=== PATIENT | male | born 1970 | race Caucasian/White ===

== ENCOUNTER 2020-02-12 06:14 | Day surgery (SDC) | payer MEDICAID, OTHER ==
[~2020-02-12] VITALS: Ht 157.5 cm; Wt 88.0 kg
[~2020-02-12 06:14] MED LIST: ACYC-114 PO; AMOX-291 PO; HYDR-3237 PO; LENA5CAP PO; LISI40TA PO
[2020-02-12 07:36] VITALS: BP 124/80
[2020-02-12 07:38] LABS: BASOPHILS # (AUTO) 0.02 x10^3/uL (0-0.1); BASOPHILS % (AUTO) 0 % (0-1); EOSINOPHILS # (AUTO) 0.07 x10^3/uL (0-0.4); EOSINOPHILS % (AUTO) 1 % (1-7); LYMPHOCYTES # (AUTO) 2.34 x10^3/uL (1-3.4); LYMPHOCYTES % (AUTO) 30 % (22-44); MD NO; MEAN CORPUSCULAR HEMOGLOBIN 31.1 pg (27.5-34.5); MEAN CORPUSCULAR HGB CONC 33.1 g/dL (33.2-36.2); MEAN CORPUSCULAR VOLUME 93.9 fL (81-97); MEAN PLATELET VOLUME 8.2 fL (7.4-10.4); MONOCYTES # (AUTO) 0.65 x10^3/uL (0.2-0.8); MONOCYTES % (AUTO) 8 % (2-9); NEUTROPHILS # (AUTO) 4.77 x10^3/uL (1.8-6.8); NEUTROPHILS % (AUTO) 61 % (42-75); PLATELET COUNT 288 x10^3/uL (130-400); RED BLOOD COUNT 4.92 x10^6/uL (4.38-5.82); RED CELL DISTRIBUTION WIDTH 14.1 % (9.4-14.8)
[2020-02-12] MEDS ORDERED: SODIUM CHLORIDE 0.9% 1,000 ML IV SCH (07:39)
[2020-02-12] MEDS ORDERED: NALOXONE 1 MG/ML, 2ML ONE (07:47)
[2020-02-12] MEDS ORDERED: FLUMAZENIL 0.1 MG/1 ML, 5ML ONE (07:47)
[2020-02-12] MEDS ORDERED: FENTANYL PF 100 MCG/2ML ONE (07:47)
[2020-02-12] MEDS ORDERED: MIDAZOLAM 1 MG/ML, 5ML ONE (07:47)
== END 2020-02-12 10:05 | disposition home or self-care (01) ==
LOC: OUT 06:14
PROVIDERS: ATTEND Internal Medicine Hematology & Oncology
DX: C90.01 Multiple myeloma in remission (principal); E11.22 Type 2 diabetes mellitus with diabetic chronic kidney disease; I12.9 Hypertensive chronic kidney disease with stage 1 through stage 4 chronic kidney disease, or unspecified chronic kidney disease; N18.9 Chronic kidney disease, unspecified; K21.9 Gastro-esophageal reflux disease without esophagitis; E66.9 Obesity, unspecified; Z68.38 Body mass index [BMI] 38.0-38.9, adult; Z88.8 Allergy status to other drugs, medicaments and biological substances; Z94.84 Stem cells transplant status; Z80.42 Family history of malignant neoplasm of prostate
CPT/HCPCS: 36415; 38222; 77012; 85025; 85060; 85097; 88237; 88264; 88280; 88305; 88311; 88313; 88360; 99156; 99157; J2250; J3010; J7030; J2310

== ENCOUNTER 2020-08-17 09:06 | Inpatient (IN) | payer OTHER, MEDICAID ==
[~2020-08-17] VITALS: Ht 172.7 cm; Wt 62.0 kg
[2020-08-17] MEDS ORDERED: SODIUM CHLORIDE 0.9% 1,000ML IVBOLUS ONE ×2 (09:30→10:30)
[2020-08-17] MEDS ORDERED: ONDANSETRON 2MG/ML, 2ML IVPush ONE (09:30)
[2020-08-17] MEDS ORDERED: SODIUM CHLORIDE FLUSH 10ML SYR IVF ONE (09:30)
[2020-08-17] MEDS ORDERED: SODIUM CHLORIDE 0.9% 1,000 ML IV ONE (09:30)
[2020-08-17 09:45] LABS: BASOPHILS % (AUTO) 0 % (0-1); EOSINOPHILS % (AUTO) 0 % (1-7); LYMPHOCYTES % (AUTO) 4 % (22-44); MEAN CORPUSCULAR HEMOGLOBIN 29.3 pg (27.5-34.5); MEAN CORPUSCULAR HGB CONC 32.4 g/dL (33.2-36.2); MEAN PLATELET VOLUME 8.5 fL (7.4-10.4); MONOCYTES % (AUTO) 5 % (2-9); NEUTROPHILS % (AUTO) 91 % (42-75); PLATELET COUNT 511 x10^3/uL (130-400); RED BLOOD COUNT 4.32 x10^6/uL (4.38-5.82); RED CELL DISTRIBUTION WIDTH 15.6 % (9.4-14.8)
[2020-08-17 09:56] LABS: ALBUMIN 2.3 g/dL (3.4-5.0); ANION GAP 17 mmol/L (5-15); CALCIUM 8.8 mg/dL (8.5-10.1); CHLORIDE 89 mmol/L (98-107); CREATININE 1.66 mg/dL (0.7-1.3)
[2020-08-17 09:58] LABS: ALKALINE PHOSPHATASE 67 U/L (45-117); BILIRUBIN,TOTAL 0.7 mg/dL (0.2-1.0); TOTAL PROTEIN 8.7 g/dL (6.4-8.2)
[2020-08-17 10:00] LABS: ALANINE AMINOTRANSFERASE < 6 U/L (12-78)
[2020-08-17] MEDS ORDERED: PLEASE ENTER HEIGHT AND WEIGHT MC SCH (10:00)
[2020-08-17 10:22] LABS: ACETONE, SERUM Large (80mg/dL) (Negative)
[2020-08-17 10:30] LABS: MD SCAN
--- NOTE | 2020-08-17 10:49 | NUR ---
MULTI ATTEMPTS AT IV MADE UNSUCCESSFUL ERP AWARE PICC LINE ORDERED
[2020-08-17] MEDS ORDERED: GUAIFENESIN/DM 200-20MG, 10ML UDC PO PRN (11:00)
[2020-08-17] MEDS ORDERED: INSULIN REGULAR 100 UNITS/ML, 3ML VIAL SQ-INSULIN SCH (11:00)
[2020-08-17] MEDS ORDERED: POTASSIUM CHLORIDE 10 MEQ in LACTATED RINGERS 1,000 ML IV SCH (11:00)
[2020-08-17] MEDS ORDERED: BACLOFEN 10 MG TABLET PO PRN (11:00)
[2020-08-17] MEDS ORDERED: ONDANSETRON ODT 4 MG PO PRN (11:00)
--- NOTE | 2020-08-17 11:05 | NUR ---
PT TO IR FOR PICC
--- NOTE | 2020-08-17 11:26 | NUR ---
RETURNED FROM IR
[2020-08-17] MEDS ORDERED: ONDANSETRON 2MG/ML, 2ML ONE (11:30)
[2020-08-17] MEDS ORDERED: INSULIN SINGLE DOSE, ER ONE (11:31)
[2020-08-17 13:20] LABS: MICROSCOPIC AUTO
[2020-08-17] MEDS ORDERED: INSULIN REGULAR 100 UNITS/ML, 3ML VIAL SQ-INSULIN ONE (14:00)
--- NOTE | 2020-08-17 14:23 | NUR ---
BLOOD GLUCOSE 341
[2020-08-17 15:40] VITALS: BP 123/76
[2020-08-17] MEDS: INSULIN LISPRO 100 UNITS/ML, PEN SQ-INSULIN SCH ×2 (16:00→22:55)
[2020-08-17] MEDS: PANTOPRAZOLE 40 MG IV IVPush SCH (17:29)
[2020-08-17 18:56] VITALS: BP 102/65
[2020-08-17] MEDS ORDERED: INSULIN LISPRO 100 UNITS/ML, PEN SQ-INSULIN SCH (19:00)
[2020-08-17] MEDS: ONDANSETRON 2MG/ML, 2ML IVPush PRN (22:48)
[2020-08-17] MEDS: MELATONIN 5 MG TABLET PO SCH (22:52)
[2020-08-18 01:50] VITALS: BP 100/66
[2020-08-18 05:52] LABS: BASOPHILS % (AUTO) 0 % (0-1); EOSINOPHILS % (AUTO) 0 % (1-7); LYMPHOCYTES % (AUTO) 8 % (22-44); MEAN CORPUSCULAR HEMOGLOBIN 29.3 pg (27.5-34.5); MEAN CORPUSCULAR HGB CONC 32.9 g/dL (33.2-36.2); MEAN PLATELET VOLUME 8.3 fL (7.4-10.4); MONOCYTES % (AUTO) 7 % (2-9); NEUTROPHILS % (AUTO) 85 % (42-75); PLATELET COUNT 431 x10^3/uL (130-400); RED BLOOD COUNT 4.12 x10^6/uL (4.38-5.82); RED CELL DISTRIBUTION WIDTH 15.1 % (9.4-14.8)
[2020-08-18 05:57] LABS: MD NO
[2020-08-18 05:58] LABS: ALBUMIN 2.1 g/dL (3.4-5.0); ANION GAP 9 mmol/L (5-15); CALCIUM 8.2 mg/dL (8.5-10.1); CHLORIDE 103 mmol/L (98-107); CREATININE 1.12 mg/dL (0.7-1.3)
[2020-08-18 06:01] LABS: ALKALINE PHOSPHATASE 61 U/L (45-117); BILIRUBIN,TOTAL 0.5 mg/dL (0.2-1.0); TOTAL PROTEIN 7.6 g/dL (6.4-8.2)
[2020-08-18 06:03] LABS: ALANINE AMINOTRANSFERASE < 6 U/L (12-78)
[2020-08-18 07:23] VITALS: BP 122/83
[2020-08-18] MEDS: PANTOPRAZOLE 40 MG IV IVPush SCH (09:43)
[2020-08-18] MEDS: INSULIN LISPRO 100 UNITS/ML, PEN SQ-INSULIN SCH ×4 (09:43→20:47)
[2020-08-18] MEDS: SENNA/DOCUSATE TABLET PO SCH (12:07)
[2020-08-18 13:02] VITALS: BP 115/78
[2020-08-18 18:18] VITALS: BP 107/74
[2020-08-18] MEDS: MELATONIN 5 MG TABLET PO SCH (20:47)
[2020-08-18 23:44] VITALS: BP 118/75
[2020-08-19] MEDS ORDERED: MAALOX/HYOSCYAMINE/LIDOCAINE 45 ML BTL PO ONE (00:30)
[2020-08-19 07:09] VITALS: BP 110/79
[2020-08-19] MEDS: PANTOPRAZOLE 40 MG IV IVPush SCH (08:33)
[2020-08-19] MEDS: SENNA/DOCUSATE TABLET PO SCH (08:33)
[2020-08-19] MEDS: ONDANSETRON 2MG/ML, 2ML IVPush PRN (08:34)
[2020-08-19] MEDS: INSULIN LISPRO 100 UNITS/ML, PEN SQ-INSULIN SCH ×2 (08:34→23:47)
[2020-08-19 10:50] LABS: ANION GAP 9 mmol/L (5-15); CALCIUM 8.3 mg/dL (8.5-10.1); CHLORIDE 101 mmol/L (98-107); CREATININE 1.05 mg/dL (0.7-1.3)
[2020-08-19 10:51] LABS: ALANINE AMINOTRANSFERASE < 6 U/L (12-78)
[2020-08-19 10:53] LABS: ALKALINE PHOSPHATASE 77 U/L (45-117); BILIRUBIN,TOTAL 0.5 mg/dL (0.2-1.0); TOTAL PROTEIN 7.6 g/dL (6.4-8.2)
[2020-08-19] MEDS ORDERED: INSULIN LISPRO 100 UNITS/ML, PEN SQ-INSULIN SCH ×2 (11:00→18:00)
[2020-08-19 13:37] VITALS: BP 112/80
[2020-08-19] MEDS ORDERED: POTASSIUM CHLORIDE 10 MEQ in LACTATED RINGERS 1,000 ML IV SCH (14:00)
[2020-08-19] MEDS: D5%-0.45NACL+KCL 20MEQ 1,000 ML IV SCH (15:07)
[2020-08-19] MEDS ORDERED: OMNIPAQUE 350 MG/ML, 100ML BOTTLE ONE (17:03)
[2020-08-19] MEDS ORDERED: HEPARIN 5,000 UNITS/ML, 1ML IV ONE (19:30)
[2020-08-19 20:11] VITALS: BP 109/79
[2020-08-19] MEDS: MELATONIN 5 MG TABLET PO SCH (20:47)
[2020-08-19] MEDS: HEPARIN 25,000 UNITS/250ML PMX 250 ML IV PRN (20:47)
[2020-08-19] MEDS: PIPERACILLIN/TAZO/PMX 3.375GM 50 ML IV SCH (20:47)
[2020-08-20] MEDS: PIPERACILLIN/TAZO/PMX 3.375GM 50 ML IV SCH ×4 (02:07→20:40)
[2020-08-20 02:09] VITALS: BP 109/73
[2020-08-20 03:34] LABS: BASOPHILS % (AUTO) 1 % (0-1); EOSINOPHILS % (AUTO) 0 % (1-7); LYMPHOCYTES % (AUTO) 11 % (22-44); MEAN CORPUSCULAR HEMOGLOBIN 29.4 pg (27.5-34.5); MEAN PLATELET VOLUME 8.2 fL (7.4-10.4); MONOCYTES % (AUTO) 5 % (2-9); NEUTROPHILS % (AUTO) 83 % (42-75); PLATELET COUNT 352 x10^3/uL (130-400); RED BLOOD COUNT 3.98 x10^6/uL (4.38-5.82)
[2020-08-20 03:47] LABS: ALBUMIN 1.7 g/dL (3.4-5.0); ANION GAP 6 mmol/L (5-15); CALCIUM 7.8 mg/dL (8.5-10.1); CHLORIDE 101 mmol/L (98-107); CREATININE 0.96 mg/dL (0.7-1.3); MD NO
[2020-08-20] MEDS: HEPARIN 5,000 UNITS/ML, 1ML IV PRN (04:08)
[2020-08-20] MEDS: D5%-0.45NACL+KCL 20MEQ 1,000 ML IV SCH ×2 (04:58→20:40)
[2020-08-20] MEDS: INSULIN LISPRO 100 UNITS/ML, PEN SQ-INSULIN SCH ×3 (06:38→20:45)
[2020-08-20 07:21] VITALS: BP 106/72
[2020-08-20] MEDS: SENNA/DOCUSATE TABLET PO SCH (07:56)
[2020-08-20] MEDS: PANTOPRAZOLE 40 MG IV IVPush SCH (08:46)
[2020-08-20] MEDS: HYDROmorphone 1 MG/ML, 1ML INJ IV PRN (11:58)
[2020-08-20] MEDS ORDERED: LIDOCAINE 1%, 10ML ONE (14:09)
[2020-08-20 14:17] VITALS: BP 105/73
[2020-08-20] MEDS ORDERED: FLUMAZENIL 0.1 MG/1 ML, 5ML ONE (15:51)
[2020-08-20] MEDS ORDERED: MIDAZOLAM 1 MG/ML, 5ML ONE (15:51)
[2020-08-20] MEDS ORDERED: FENTANYL PF 100 MCG/2ML ONE (15:51)
[2020-08-20] MEDS ORDERED: NALOXONE 1 MG/ML, 2ML ONE (15:51)
[2020-08-20 18:42] VITALS: BP 99/67
[2020-08-20] MEDS: MELATONIN 5 MG TABLET PO SCH (20:38)
[2020-08-20] MEDS ORDERED: HEPARIN 5,000 UNITS/ML, 1ML IV ONE (21:30)
[2020-08-20] MEDS: HEPARIN 25,000 UNITS/250ML PMX 250 ML IV PRN (21:45)
[2020-08-21] MEDS: PIPERACILLIN/TAZO/PMX 3.375GM 50 ML IV SCH ×4 (01:41→20:33)
[2020-08-21 01:42] VITALS: BP 102/68
[2020-08-21 04:25] LABS: BASOPHILS % (AUTO) 1 % (0-1); EOSINOPHILS % (AUTO) 1 % (1-7); LYMPHOCYTES % (AUTO) 22 % (22-44); MEAN CORPUSCULAR HEMOGLOBIN 29.1 pg (27.5-34.5); MEAN CORPUSCULAR HGB CONC 32.7 g/dL (33.2-36.2); MEAN PLATELET VOLUME 8.6 fL (7.4-10.4); MONOCYTES % (AUTO) 8 % (2-9); NEUTROPHILS % (AUTO) 69 % (42-75); PLATELET COUNT 320 x10^3/uL (130-400); RED BLOOD COUNT 3.53 x10^6/uL (4.38-5.82); RED CELL DISTRIBUTION WIDTH 14.7 % (9.4-14.8)
[2020-08-21 04:27] LABS: MD NO
[2020-08-21 04:32] LABS: ALBUMIN 1.4 g/dL (3.4-5.0); ANION GAP 6 mmol/L (5-15); CALCIUM 7.6 mg/dL (8.5-10.1); CHLORIDE 103 mmol/L (98-107); CREATININE 0.96 mg/dL (0.7-1.3)
[2020-08-21] MEDS: HEPARIN 5,000 UNITS/ML, 1ML IV PRN ×3 (05:01→20:32)
[2020-08-21] MEDS: INSULIN LISPRO 100 UNITS/ML, PEN SQ-INSULIN SCH ×4 (06:29→20:55)
[2020-08-21 07:22] VITALS: BP 99/65
[2020-08-21] MEDS: PANTOPRAZOLE 40 MG IV IVPush SCH (08:23)
[2020-08-21] MEDS ORDERED: LACTATED RINGERS 1,000 ML IV SCH (08:30)
[2020-08-21] MEDS: ONDANSETRON 2MG/ML, 2ML IVPush PRN (08:59)
[2020-08-21] MEDS: SENNA/DOCUSATE TABLET PO SCH (10:48)
[2020-08-21 12:20] VITALS: BP 100/68
[2020-08-21] MEDS ORDERED: POTASSIUM CHLORIDE 40 MEQ in SODIUM CHLORIDE 0.9% 500 ML IV ONE (18:30)
[2020-08-21 19:30] VITALS: BP 104/72
[2020-08-21] MEDS: MELATONIN 5 MG TABLET PO SCH (20:33)
[2020-08-21] MEDS: SODIUM CHLORIDE 0.9% 1,000 ML IV SCH (20:39)
[2020-08-22] MEDS: HEPARIN 25,000 UNITS/250ML PMX 250 ML IV PRN (00:13)
[2020-08-22 01:08] VITALS: BP 102/67
[2020-08-22] MEDS: PIPERACILLIN/TAZO/PMX 3.375GM 50 ML IV SCH ×4 (02:19→22:32)
[2020-08-22 02:35] LABS: BASOPHILS % (AUTO) 1 % (0-1); EOSINOPHILS % (AUTO) 1 % (1-7); LYMPHOCYTES % (AUTO) 25 % (22-44); MEAN CORPUSCULAR HEMOGLOBIN 28.8 pg (27.5-34.5); MEAN CORPUSCULAR HGB CONC 32.8 g/dL (33.2-36.2); MEAN PLATELET VOLUME 8.3 fL (7.4-10.4); MONOCYTES % (AUTO) 7 % (2-9); NEUTROPHILS % (AUTO) 66 % (42-75); PLATELET COUNT 352 x10^3/uL (130-400); RED BLOOD COUNT 3.69 x10^6/uL (4.38-5.82); RED CELL DISTRIBUTION WIDTH 14.7 % (9.4-14.8)
[2020-08-22 02:37] LABS: MD NO
[2020-08-22 02:44] LABS: ALBUMIN 1.6 g/dL (3.4-5.0); ANION GAP 6 mmol/L (5-15); CHLORIDE 106 mmol/L (98-107); CREATININE 0.96 mg/dL (0.7-1.3)
[2020-08-22 02:52] LABS: ALKALINE PHOSPHATASE 93 U/L (45-117); BILIRUBIN,TOTAL 0.3 mg/dL (0.2-1.0); C-REACTIVE PROTEIN, QUANT 9.72 mg/dL (0.02-0.49); TOTAL PROTEIN 6.5 g/dL (6.4-8.2)
[2020-08-22 02:56] LABS: ALANINE AMINOTRANSFERASE < 6 U/L (12-78)
[2020-08-22] MEDS: HEPARIN 5,000 UNITS/ML, 1ML IV PRN ×3 (03:24→17:51)
[2020-08-22 08:31] VITALS: BP 108/72
[2020-08-22] MEDS: PANTOPRAZOLE 40 MG IV IVPush SCH (08:41)
[2020-08-22] MEDS: INSULIN LISPRO 100 UNITS/ML, PEN SQ-INSULIN SCH ×4 (08:41→22:32)
[2020-08-22] MEDS: SENNA/DOCUSATE TABLET PO SCH (08:42)
[2020-08-22 12:06] VITALS: BP 106/85
[2020-08-22 19:48] VITALS: BP 107/71
[2020-08-22] MEDS: INSULIN GLARGINE 100 UNITS/ML, PEN SQ-INSULIN SCH (22:33)
[2020-08-22] MEDS: MELATONIN 5 MG TABLET PO SCH (22:33)
[2020-08-22] MEDS: SODIUM CHLORIDE 0.9% 1,000 ML IV SCH ×2 (22:33→22:35)
[2020-08-23 00:45] VITALS: BP 100/65
[2020-08-23] MEDS: HEPARIN 5,000 UNITS/ML, 1ML IV PRN (01:29)
[2020-08-23] MEDS: HEPARIN 25,000 UNITS/250ML PMX 250 ML IV PRN ×2 (01:31→17:35)
[2020-08-23] MEDS: PIPERACILLIN/TAZO/PMX 3.375GM 50 ML IV SCH ×4 (02:06→21:19)
[2020-08-23 07:13] VITALS: BP 102/66
[2020-08-23 07:36] LABS: BASOPHILS % (AUTO) 0 % (0-1); EOSINOPHILS % (AUTO) 1 % (1-7); LYMPHOCYTES % (AUTO) 28 % (22-44); MEAN CORPUSCULAR HEMOGLOBIN 29.6 pg (27.5-34.5); MEAN CORPUSCULAR HGB CONC 33.4 g/dL (33.2-36.2); MEAN PLATELET VOLUME 8.3 fL (7.4-10.4); MONOCYTES % (AUTO) 9 % (2-9); NEUTROPHILS % (AUTO) 62 % (42-75); PLATELET COUNT 389 x10^3/uL (130-400); RED BLOOD COUNT 3.61 x10^6/uL (4.38-5.82); RED CELL DISTRIBUTION WIDTH 14.4 % (9.4-14.8)
[2020-08-23 07:41] LABS: ALBUMIN 1.6 g/dL (3.4-5.0); ANION GAP 5 mmol/L (5-15); CALCIUM 7.9 mg/dL (8.5-10.1); CHLORIDE 105 mmol/L (98-107); CREATININE 1.25 mg/dL (0.7-1.3)
[2020-08-23 07:43] LABS: ALKALINE PHOSPHATASE 103 U/L (45-117); BILIRUBIN,TOTAL 0.3 mg/dL (0.2-1.0); TOTAL PROTEIN 6.4 g/dL (6.4-8.2)
[2020-08-23 07:49] LABS: MD NO
[2020-08-23 07:59] LABS: ALANINE AMINOTRANSFERASE < 6 U/L (12-78)
[2020-08-23] MEDS: PANTOPRAZOLE 40 MG IV IVPush SCH (08:14)
[2020-08-23] MEDS: SENNA/DOCUSATE TABLET PO SCH (08:14)
[2020-08-23] MEDS: INSULIN LISPRO 100 UNITS/ML, PEN SQ-INSULIN SCH ×4 (08:14→21:20)
[2020-08-23] MEDS ORDERED: POTASSIUM CHLORIDE 40 MEQ in SODIUM CHLORIDE 0.9% 500 ML IV ONE (10:00)
[2020-08-23 12:51] VITALS: BP 106/70
[2020-08-23] MEDS: SODIUM CHLORIDE 0.9% 1,000 ML IV SCH (16:52)
[2020-08-23 20:35] VITALS: BP 106/73
[2020-08-23] MEDS: MELATONIN 5 MG TABLET PO SCH (21:00)
[2020-08-23] MEDS: INSULIN GLARGINE 100 UNITS/ML, PEN SQ-INSULIN SCH (21:19)
[2020-08-24 00:04] VITALS: BP 108/76
[2020-08-24] MEDS: PIPERACILLIN/TAZO/PMX 3.375GM 50 ML IV SCH ×4 (03:29→22:59)
[2020-08-24] MEDS: SODIUM CHLORIDE 0.9% 1,000 ML IV SCH ×2 (06:22→18:37)
[2020-08-24 07:09] VITALS: BP 103/69
[2020-08-24] MEDS: PANTOPRAZOLE 40 MG IV IVPush SCH (08:42)
[2020-08-24] MEDS: SENNA/DOCUSATE TABLET PO SCH (08:42)
[2020-08-24] MEDS: INSULIN LISPRO 100 UNITS/ML, PEN SQ-INSULIN SCH ×4 (08:44→22:59)
[2020-08-24] MEDS: ONDANSETRON 2MG/ML, 2ML IVPush PRN (08:58)
[2020-08-24] MEDS: HEPARIN 25,000 UNITS/250ML PMX 250 ML IV PRN (10:58)
[2020-08-24 12:40] VITALS: BP 115/79
[2020-08-24] MEDS ORDERED: OMNIPAQUE 350 MG/ML, 100ML BOTTLE ONE (15:15)
[2020-08-24 21:42] VITALS: BP 114/77
[2020-08-24] MEDS: MELATONIN 5 MG TABLET PO SCH (22:59)
[2020-08-24] MEDS: INSULIN GLARGINE 100 UNITS/ML, PEN SQ-INSULIN SCH (23:00)
[2020-08-25 00:31] VITALS: BP 100/67
[2020-08-25] MEDS: HEPARIN 25,000 UNITS/250ML PMX 250 ML IV PRN ×2 (04:00→22:34)
[2020-08-25] MEDS: PIPERACILLIN/TAZO/PMX 3.375GM 50 ML IV SCH ×4 (05:23→22:37)
[2020-08-25 06:23] LABS: BASOPHILS % (AUTO) 1 % (0-1); EOSINOPHILS % (AUTO) 1 % (1-7); LYMPHOCYTES % (AUTO) 24 % (22-44); MEAN CORPUSCULAR HEMOGLOBIN 29.3 pg (27.5-34.5); MEAN CORPUSCULAR HGB CONC 33.6 g/dL (33.2-36.2); MONOCYTES % (AUTO) 7 % (2-9); NEUTROPHILS % (AUTO) 67 % (42-75); PLATELET COUNT 457 x10^3/uL (130-400); RED BLOOD COUNT 3.73 x10^6/uL (4.38-5.82); RED CELL DISTRIBUTION WIDTH 14.4 % (9.4-14.8)
[2020-08-25 06:32] LABS: ALBUMIN 1.8 g/dL (3.4-5.0); ANION GAP 4 mmol/L (5-15); CALCIUM 8.4 mg/dL (8.5-10.1); CHLORIDE 107 mmol/L (98-107)
[2020-08-25 06:38] LABS: MD NO
[2020-08-25 06:50] LABS: ALANINE AMINOTRANSFERASE < 6 U/L (12-78); ALKALINE PHOSPHATASE 90 U/L (45-117); BILIRUBIN,TOTAL 0.3 mg/dL (0.2-1.0); C-REACTIVE PROTEIN, QUANT 3.73 mg/dL (0.02-0.49); CREATININE 1.24 mg/dL (0.7-1.3); TOTAL PROTEIN 6.8 g/dL (6.4-8.2)
[2020-08-25] MEDS: INSULIN LISPRO 100 UNITS/ML, PEN SQ-INSULIN SCH ×4 (07:00→20:41)
[2020-08-25 07:08] VITALS: BP 107/71
[2020-08-25] MEDS: PANTOPRAZOLE 40 MG IV IVPush SCH (09:02)
[2020-08-25] MEDS: SENNA/DOCUSATE TABLET PO SCH (09:03)
[2020-08-25] MEDS: SODIUM CHLORIDE 0.9% 1,000 ML IV SCH (09:03)
[2020-08-25] MEDS: ONDANSETRON 2MG/ML, 2ML IVPush PRN (09:23)
[2020-08-25] MEDS ORDERED: MAGNESIUM SULFATE PMX 4GM/100M 100 ML IV ONE (09:30)
[2020-08-25 13:02] VITALS: BP 108/78
[2020-08-25 18:44] VITALS: BP 97/62
[2020-08-25] MEDS: MELATONIN 5 MG TABLET PO SCH (20:44)
[2020-08-25] MEDS: INSULIN GLARGINE 100 UNITS/ML, PEN SQ-INSULIN SCH (20:44)
[2020-08-26 00:55] VITALS: BP 98/65
[2020-08-26] MEDS: PIPERACILLIN/TAZO/PMX 3.375GM 50 ML IV SCH ×4 (04:44→22:52)
[2020-08-26] MEDS: PANTOPRAZOLE 40MG TABLET PO SCH (06:16)
[2020-08-26] MEDS: INSULIN LISPRO 100 UNITS/ML, PEN SQ-INSULIN SCH ×4 (06:18→20:26)
[2020-08-26 07:33] VITALS: BP 104/69
[2020-08-26] MEDS: SENNA/DOCUSATE TABLET PO SCH (07:38)
[2020-08-26] MEDS ORDERED: OMNIPAQUE 350 MG/ML, 150 ML BOTTLE ONE (12:00)
[2020-08-26 12:24] VITALS: BP 104/72
[2020-08-26] MEDS: HEPARIN 25,000 UNITS/250ML PMX 250 ML IV PRN (13:04)
[2020-08-26] MEDS: MELATONIN 5 MG TABLET PO SCH (20:23)
[2020-08-26] MEDS: INSULIN GLARGINE 100 UNITS/ML, PEN SQ-INSULIN SCH (20:29)
[2020-08-26 22:22] VITALS: BP 103/70
[2020-08-27 02:30] VITALS: BP 93/68
[2020-08-27 03:19] VITALS: BP 103/67
[2020-08-27] MEDS: HYDROmorphone 1 MG/ML, 1ML INJ IV PRN ×4 (03:39→21:51)
[2020-08-27] MEDS: HEPARIN 25,000 UNITS/250ML PMX 250 ML IV PRN ×2 (04:38→21:34)
[2020-08-27] MEDS: PIPERACILLIN/TAZO/PMX 3.375GM 50 ML IV SCH ×4 (05:32→23:48)
[2020-08-27 05:54] LABS: BASOPHILS % (AUTO) 1 % (0-1); EOSINOPHILS % (AUTO) 1 % (1-7); LYMPHOCYTES % (AUTO) 18 % (22-44); MEAN CORPUSCULAR HEMOGLOBIN 29.4 pg (27.5-34.5); MEAN CORPUSCULAR HGB CONC 33.2 g/dL (33.2-36.2); MEAN PLATELET VOLUME 8.1 fL (7.4-10.4); MONOCYTES % (AUTO) 4 % (2-9); NEUTROPHILS % (AUTO) 77 % (42-75); PLATELET COUNT 526 x10^3/uL (130-400); RED BLOOD COUNT 3.77 x10^6/uL (4.38-5.82); RED CELL DISTRIBUTION WIDTH 14.6 % (9.4-14.8)
[2020-08-27 06:03] LABS: ANION GAP 7 mmol/L (5-15); CALCIUM 8.8 mg/dL (8.5-10.1); CHLORIDE 109 mmol/L (98-107)
[2020-08-27 06:04] LABS: MD NO
[2020-08-27 06:06] LABS: ALKALINE PHOSPHATASE 77 U/L (45-117); BILIRUBIN,TOTAL 0.3 mg/dL (0.2-1.0); CREATININE 1.69 mg/dL (0.7-1.3); TOTAL PROTEIN 7.5 g/dL (6.4-8.2)
[2020-08-27 06:07] LABS: ALANINE AMINOTRANSFERASE < 6 U/L (12-78)
[2020-08-27] MEDS: PANTOPRAZOLE 40MG TABLET PO SCH (06:15)
[2020-08-27 07:49] VITALS: BP 121/80
[2020-08-27] MEDS: INSULIN LISPRO 100 UNITS/ML, PEN SQ-INSULIN SCH ×4 (08:12→21:00)
[2020-08-27] MEDS: SENNA/DOCUSATE TABLET PO SCH (09:01)
[2020-08-27] MEDS: ONDANSETRON 2MG/ML, 2ML IVPush PRN (09:10)
[2020-08-27 13:23] VITALS: BP 107/74
[2020-08-27 19:28] VITALS: BP 94/64
[2020-08-27] MEDS: MELATONIN 5 MG TABLET PO SCH (21:07)
[2020-08-27] MEDS: INSULIN GLARGINE 100 UNITS/ML, PEN SQ-INSULIN SCH (21:08)
[2020-08-28 01:39] VITALS: BP 111/76
[2020-08-28] MEDS: MELATONIN 5 MG TABLET PO SCH (02:47)
[2020-08-28] MEDS: PANTOPRAZOLE 40MG TABLET PO SCH (05:38)
[2020-08-28] MEDS: PIPERACILLIN/TAZO/PMX 3.375GM 50 ML IV SCH ×4 (05:38→23:08)
[2020-08-28 07:09] VITALS: BP 102/69
[2020-08-28 07:56] LABS: BASOPHILS % (AUTO) 0 % (0-1); EOSINOPHILS % (AUTO) 1 % (1-7); LYMPHOCYTES % (AUTO) 14 % (22-44); MEAN CORPUSCULAR HEMOGLOBIN 29.2 pg (27.5-34.5); MEAN CORPUSCULAR HGB CONC 33.1 g/dL (33.2-36.2); MEAN PLATELET VOLUME 8.4 fL (7.4-10.4); MONOCYTES % (AUTO) 3 % (2-9); NEUTROPHILS % (AUTO) 83 % (42-75); PLATELET COUNT 508 x10^3/uL (130-400); RED BLOOD COUNT 3.88 x10^6/uL (4.38-5.82); RED CELL DISTRIBUTION WIDTH 14.9 % (9.4-14.8)
[2020-08-28 08:07] LABS: ANION GAP 5 mmol/L (5-15); CALCIUM 8.2 mg/dL (8.5-10.1); CHLORIDE 104 mmol/L (98-107); CREATININE 1.34 mg/dL (0.7-1.3)
[2020-08-28 08:31] LABS: MD NO
[2020-08-28] MEDS: INSULIN LISPRO 100 UNITS/ML, PEN SQ-INSULIN SCH ×4 (08:32→20:27)
[2020-08-28] MEDS: ONDANSETRON 2MG/ML, 2ML IVPush PRN (08:33)
[2020-08-28] MEDS: HYDROmorphone 1 MG/ML, 1ML INJ IV PRN (08:33)
[2020-08-28] MEDS: SENNA/DOCUSATE TABLET PO SCH (08:35)
[2020-08-28 12:58] VITALS: BP 97/67
[2020-08-28] MEDS: HEPARIN 25,000 UNITS/250ML PMX 250 ML IV PRN (16:19)
[2020-08-28 19:24] VITALS: BP 106/70
[2020-08-28] MEDS: APIXABAN 5 MG TABLET PO SCH (20:23)
[2020-08-28] MEDS: INSULIN GLARGINE 100 UNITS/ML, PEN SQ-INSULIN SCH (20:27)
[2020-08-29 01:47] VITALS: BP 87/51
[2020-08-29] MEDS: PIPERACILLIN/TAZO/PMX 3.375GM 50 ML IV SCH (04:47)
[2020-08-29] MEDS: PANTOPRAZOLE 40MG TABLET PO SCH (04:48)
[2020-08-29 05:09] LABS: ANION GAP 3 mmol/L (5-15); CALCIUM 8.5 mg/dL (8.5-10.1); CHLORIDE 107 mmol/L (98-107); CREATININE 1.32 mg/dL (0.7-1.3)
[2020-08-29 05:11] LABS: BASOPHILS % (AUTO) 0 % (0-1); EOSINOPHILS % (AUTO) 1 % (1-7); LYMPHOCYTES % (AUTO) 21 % (22-44); MEAN CORPUSCULAR HEMOGLOBIN 29.2 pg (27.5-34.5); MEAN CORPUSCULAR HGB CONC 33.1 g/dL (33.2-36.2); MEAN PLATELET VOLUME 8.1 fL (7.4-10.4); MONOCYTES % (AUTO) 4 % (2-9); NEUTROPHILS % (AUTO) 74 % (42-75); PLATELET COUNT 476 x10^3/uL (130-400); RED BLOOD COUNT 3.68 x10^6/uL (4.38-5.82); RED CELL DISTRIBUTION WIDTH 14.9 % (9.4-14.8)
[2020-08-29 05:12] LABS: MD NO
[2020-08-29] MEDS: INSULIN LISPRO 100 UNITS/ML, PEN SQ-INSULIN SCH ×3 (07:00→16:21)
[2020-08-29 07:40] VITALS: BP 100/69
[2020-08-29] MEDS: APIXABAN 5 MG TABLET PO SCH (08:51)
[2020-08-29] MEDS: SENNA/DOCUSATE TABLET PO SCH (08:51)
[2020-08-29] MEDS ORDERED: ERTAPENEM 1 GM in SODIUM CHLORIDE 0.9% 50 ML IV SCH (09:00)
[2020-08-29 12:36] VITALS: BP 98/70
[2020-08-29] MEDS ORDERED: ERTA1VIA4 IV (13:24)
[2020-08-29] MEDS ORDERED: PANT40TA6 PO (13:24)
[2020-08-29] MEDS ORDERED: APIX5TAB PO (13:24)
[2020-08-29] MEDS ORDERED: INSU100I13 SQ-INSULIN (13:24)
== END 2020-08-29 18:40 | disposition home or self-care (01) | DRG 871 ==
LOC: ED 09:55 → EDIP 10:38 → 5SO 15:35 → 4NW 08-27 03:26
PROVIDERS: ADMIT Family Medicine; ATTEND Internal Medicine
PROC: 02HV33Z Insertion of Infusion Device into Superior Vena Cava, Percutaneous Approach (ICD-10-PCS; principal; 2020-08-17)
PROC: B548ZZA Ultrasonography of Superior Vena Cava, Guidance (ICD-10-PCS; 2020-08-17)
PROC: 0H97X0Z Drainage of Abdomen Skin with Drainage Device, External Approach (ICD-10-PCS; 2020-08-20)
DX: A41.9 Sepsis, unspecified organism (principal); E10.10 Type 1 diabetes mellitus with ketoacidosis without coma; E43 Unspecified severe protein-calorie malnutrition; I81 Portal vein thrombosis; K55.069 Acute infarction of intestine, part and extent unspecified; K85.12 Biliary acute pancreatitis with infected necrosis; N17.0 Acute kidney failure with tubular necrosis; C25.9 Malignant neoplasm of pancreas, unspecified; C90.00 Multiple myeloma not having achieved remission; E87.1 Hypo-osmolality and hyponatremia; K86.3 Pseudocyst of pancreas; L02.211 Cutaneous abscess of abdominal wall; Z94.84 Stem cells transplant status; B96.1 Klebsiella pneumoniae [K. pneumoniae] as the cause of diseases classified elsewhere; D47.3 Essential (hemorrhagic) thrombocythemia; D64.9 Anemia, unspecified; E10.22 Type 1 diabetes mellitus with diabetic chronic kidney disease; D72.829 Elevated white blood cell count, unspecified; E83.42 Hypomagnesemia; R74.8 Abnormal levels of other serum enzymes; E86.0 Dehydration; E87.6 Hypokalemia; I12.9 Hypertensive chronic kidney disease with stage 1 through stage 4 chronic kidney disease, or unspecified chronic kidney disease; I51.3 Intracardiac thrombosis, not elsewhere classified; K21.9 Gastro-esophageal reflux disease without esophagitis; K80.20 Calculus of gallbladder without cholecystitis without obstruction; N18.9 Chronic kidney disease, unspecified; Z79.4 Long term (current) use of insulin; Z85.07 Personal history of malignant neoplasm of pancreas; Z79.899 Other long term (current) drug therapy; Z79.891 Long term (current) use of opiate analgesic; Z79.01 Long term (current) use of anticoagulants; Z68.20 Body mass index [BMI] 20.0-20.9, adult; Z90.49 Acquired absence of other specified parts of digestive tract
CPT/HCPCS: 36415; 74250; 75989; 96361; 96374; 99285; J3490; 36573; 49405; 71045; 74177; 74178; 74181; 80048; 80053; 80069; 81001; 82010; 82150; 82800; 82962; 83036; 83690; 83735; 84100; 84132; 85025; 85384; 85520; 85651; 86140; 87040; 87070; 87075; 87076; 87102; 87186; 87205; 93005; 99156; 99157; G0378; J1170; J1335; J1644; J2250; J2405; J2543; J3010; J3480; Q0162; Q9967; C1729; C1751; C1769; C9113; J1815; J2310; J3475; J7030; J7040; J7120

== ENCOUNTER → 2020-09-22 | Outpatient (CLI) | payer BC, MEDICAID ==
[~2020-09-22] MED LIST changes: +APIX5TAB PO; +ERTA1VIA4 IV; +INSU100I13 SQ-INSULIN; +PANT40TA6 PO
== END | disposition home or self-care (01) ==
LOC: RAD 14:36
PROVIDERS: ATTEND Internal Medicine Infectious Disease
DX: K85.10 Biliary acute pancreatitis without necrosis or infection (principal); K63.0 Abscess of intestine
CPT/HCPCS: 76700

== ENCOUNTER → 2020-09-29 | Outpatient (CLI) | payer BC, MEDICAID ==
[~2020-09-29] MED LIST changes: +OMNIPAQUE 350 MG/ML, 100ML BOTTLE ONE
== END | disposition home or self-care (01) ==
LOC: RAD 13:32
PROVIDERS: ATTEND Internal Medicine Infectious Disease
DX: K86.89 Other specified diseases of pancreas (principal); K85.10 Biliary acute pancreatitis without necrosis or infection; K63.0 Abscess of intestine
CPT/HCPCS: 74177; Q9967

== ENCOUNTER → 2021-03-12 | Outpatient (CLI) | payer MEDICAID ==
[~2021-03-12] MED LIST changes: -ACYC-114 PO; +ACYC-40 PO; -LISI40TA PO; +LISI40TA9 PO
== END | disposition home or self-care (01) ==
LOC: CFH 08:24
PROVIDERS: ATTEND Internal Medicine Hematology & Oncology
DX: C90.02 Multiple myeloma in relapse (principal)
CPT/HCPCS: 74177; Q9967